=== PATIENT | female | born 1990 | race Caucasian/White ===

== ENCOUNTER 2016-06-30 07:50 | Day surgery (SDC) | payer OTHER ==
[2016-06-30 08:41] LABS: PROTHROMBIN TIME 14.3 SEC (11.4-15.4)
[2016-06-30 11:49] LABS: APPEARANCE ALL TUBES CLEAR; RBC DILUENT USED NONE USED; RBC DILUTION FACTOR 1; RBC SIDE 1 6; RBC SIDE 2 4; TOTAL RBC SQUARES COUNTED 225; WHITE BLOOD CELL,CSF 6 /uL (0-5)
[2016-06-30 12:09] LABS: GLUCOSE,CSF 57 mg/dL (40-70)
[2016-06-30 13:06] VITALS: BP 94/60
[2016-07-01 15:38] LABS: ALBUMIN CSF 22 mg/dL (11-48); ALBUMIN SERUM 4.1 g/dL (3.5-5.5); CSF IGG INDEX 0.4 (0.0-0.7); IGG SYNTHESIS RATE CSF -4.1 mg/day (-9.9 TO +3.3); IGG/ALBUMIN RATIO CSF 0.12 (0.00-0.25); IMMUNOGLOBULIN G CSF 2.6 mg/dL (0.0-8.6); IMMUNOGLOBULIN G SERUM 1087 mg/dL (700-1600)
[2016-07-02 11:43] LABS: CSF/SERUM ALBUMIN INDEX 5 (0-8)
== END 2016-06-30 12:30 | disposition home or self-care (01) ==
LOC: RAD 07:50
PROVIDERS: ATTEND Specialist
PROC: 009U3ZX Drainage of Spinal Canal, Percutaneous Approach, Diagnostic (ICD-10-PCS; principal; 2016-06-30)
DX: G35 Multiple sclerosis (principal); E03.9 Hypothyroidism, unspecified
CPT/HCPCS: 36415; 62270; 77003; 82784; 82945; 83916; 84157; 85610; 85730; 87070; 87205; 89050